=== PATIENT | female | born 1970 | race Caucasian/White ===

== ENCOUNTER → 2016-09-10 | Outpatient (CLI) | payer OTHER | LOC: BMCIMAGING 07:24 | DX: Z12.31 Encounter for screening mammogram for malignant neoplasm of breast (principal) | CPT/HCPCS: G0202 ==

== ENCOUNTER → 2016-09-17 | Outpatient (CLI) | payer OTHER | LOC: BMCIMAGING 10:46 | PROVIDERS: ATTEND Family Medicine | DX: D25.2 Subserosal leiomyoma of uterus (principal) ==

== ENCOUNTER → 2016-10-04 | Outpatient (CLI) | payer OTHER | LOC: BMCIMAGING 12:46 | DX: Z12.39 Encounter for other screening for malignant neoplasm of breast (principal); R92.2 Inconclusive mammogram | CPT/HCPCS: G0206 ==

== ENCOUNTER 2016-12-21 07:30 | Observation (INO) | payer OTHER ==
[~2016-12-21 07:30] MED LIST: KETOROLAC 30 MG/1 ML SDV IVP ONE; NS 1,000 ML IV ONE; SCOPOLAMINE HYDROBROMIDE 1.5 MG PATCH TD ONE
[2016-12-21] MEDS ORDERED: KETOROLAC 30 MG/1 ML SDV IVP ONE (07:32)
[2016-12-21] MEDS ORDERED: NS 1,000 ML IV ONE (07:32)
[2016-12-21] MEDS ORDERED: SCOPOLAMINE HYDROBROMIDE 1.5 MG PATCH TD ONE (07:32)
[2016-12-21] MEDS ORDERED: HEPARIN 10,000 UNIT/10 ML MDV ONE (07:37)
[2016-12-21] MEDS ORDERED: MIDAZOLAM 2 MG/2 ML VIAL ONE (08:36)
[2016-12-21] MEDS ORDERED: fentaNYL 100 MCG/2 ML INJ ONE (08:36)
[2016-12-21] MEDS ORDERED: ONDANSETRON 4 MG/2 ML VIAL ONE (08:36)
[2016-12-21] MEDS ORDERED: IOPAMIDOL (ISOVUE-300) 100 ML BTL ONE ×2 (10:04→10:08)
[2016-12-21] MEDS ORDERED: BUPIVACAINE 0.5% 30 ML SDV ONE (10:04)
[2016-12-21] MEDS ORDERED: HYDROmorphONE/DILAUDID 6 MG/30 ML PCA IV ONE (10:15)
[2016-12-21] MEDS ORDERED: NITROGLYCERIN/D5W 50 MG/250 ML BOTTLE IV ONE (10:19)
[2016-12-21] MEDS ORDERED: LACTULOSE 20 GM/30 ML UDCUP PO PRN (11:09)
[2016-12-21] MEDS ORDERED: POLYETHYLENE GLYCOL 3350 17 GM PKT PO PRN (11:09)
[2016-12-21] MEDS ORDERED: MAGNESIUM HYDROXIDE 30 ML UDCUP PO PRN (11:09)
[2016-12-21] MEDS ORDERED: BISACODYL 10 MG SUPP PR PRN (11:09)
[2016-12-21] MEDS ORDERED: ONDANSETRON 4 MG/2 ML VIAL IVP PRN (11:09)
[2016-12-21] MEDS ORDERED: NALOXONE HCL 0.4 MG/ML INJ IVP PRN (11:09)
[2016-12-21] MEDS ORDERED: HYDROmorphONE/DILAUDID 6 MG/30 ML PCA IV PRN (11:09)
--- NOTE | 2016-12-21 11:13 | POSTOPPROG ---
Post Op Note Date of Operation: 12/21/16 Surgeon: Emily Tubbs Anesthesia: IV Sedation Pre-op Diagnosis: uterine fibroids Post-op Diagnosis: same Indication: worsening symptoms Procedure: UFE Findings: no ovarian supply Inf/Abcess present in the surg proc area at time of surgery?: No Depth: Superfical (Skin SQ) EBL: Minimal Complications: None
[2016-12-21] MEDS ORDERED: NS 1,000 ML IV SCH (11:15)
[2016-12-21] MEDS: morphINE SR 15 MG TAB PO SCH ×2 (13:32→23:50)
[2016-12-21] MEDS: KETOROLAC 30 MG/1 ML SDV IVP SCH ×2 (15:37→21:41)
[2016-12-21] MEDS: oxyCODONE IR 5 MG TAB PO PRN (17:17)
[2016-12-21 21:07] VITALS: RESP 18
[2016-12-21] MEDS: SENNOSIDES/DOCUSATE SODIUM TAB PO SCH (21:40)
[2016-12-22] MEDS: KETOROLAC 30 MG/1 ML SDV IVP SCH (04:36)
[2016-12-22] MEDS: oxyCODONE IR 5 MG TAB PO PRN ×2 (04:43→14:01)
[2016-12-22] MEDS ORDERED: levOFLOXACIN 500 MG/DEXTROSE 100 ML IV ONE (07:00)
[2016-12-22] MEDS: morphINE SR 15 MG TAB PO SCH (09:35)
[2016-12-22] MEDS: SENNOSIDES/DOCUSATE SODIUM TAB PO SCH (09:36)
[2016-12-22] MEDS ORDERED: KETOROLAC 30 MG/1 ML SDV IVP ONE (09:45)
[2016-12-22 11:15] VITALS: BP 141/92; PULSE 69; TEMP 98.9; O2SAT 97
[2016-12-22] MEDS ORDERED: IBUPROFEN 600 MG TAB PO SCH (12:00)
--- NOTE | 2016-12-22 14:55 | SOAPPROG ---
[facility] Progress Note Assessment/Plan: Assessment: No evidence of complication after uterine fibroid embolization yesterday. Progressing well. Plan: Discharge today. F/U in [address] Tubbs. 12/22/16 14:49 Subjective: Feeling better. Crampy pelvic pain down to 3/10. Eating now, appetite better, no vomiting. Has been up to bathroom. Objective: Afebrile. Lungs clear. Heart RRR, no murmur. Abdomen: Bowel sounds present in all four quadrants. Abdomen soft, nontender, no masses. Right groin: no hematoma. Right pulses present: femoral, popliteal, dorsalis pedis. Vital Signs Temp Pulse Resp BP Pulse Ox 37.2 C 69 18 141/92 H 97 12/22/16 11:00 12/22/16 11:00 12/22/16 11:00 12/22/16 11:00 12/22/16 11:00 12/21/16 12/22/16 12/23/16 05:59 05:59 05:59 Intake Total 1700 Output Total 3350 700 Balance -1650 -700 - Pending Discharge Pending Discharge Within 24 Hours: Yes Pending Discharge Date: 12/22/16 Pending Discharge Time: 05:00 ICD10 Worksheet Patient Problems: Problems Problem Status Onset Uterine fibroid Acute
== END 2016-12-22 15:45 | disposition home or self-care (01) ==
LOC: FIMAGING 07:30 → F3E 11:09 → FOB 13:09
PROVIDERS: ADMIT Radiology Diagnostic Radiology; ATTEND Radiology Diagnostic Radiology
DX: D25.9 Leiomyoma of uterus, unspecified (principal)
CPT/HCPCS: 36247; 37243; 75736; 99152; C1769; C1894; G0378; C1760; J1170; J1644; J1885; J1956; J2250; J2405; J3010; Q9967

== ENCOUNTER → 2017-09-13 | Outpatient (CLI) | payer OTHER | LOC: BMCIMAGING 07:47 | PROVIDERS: ATTEND Family Medicine | DX: Z12.31 Encounter for screening mammogram for malignant neoplasm of breast (principal) ==

== ENCOUNTER → 2017-11-03 | Outpatient (CLI) | payer OTHER | LOC: BMCIMAGING 08:03 | PROVIDERS: ATTEND Physician Assistant | DX: R10.11 Right upper quadrant pain (principal); K76.0 Fatty (change of) liver, not elsewhere classified; R16.0 Hepatomegaly, not elsewhere classified ==

== ENCOUNTER → 2017-11-30 | Outpatient (CLI) | payer OTHER | LOC: FIMAGING 09:01 | PROVIDERS: ATTEND Physician Assistant | DX: R10.11 Right upper quadrant pain (principal) | CPT/HCPCS: A9537 ==

== ENCOUNTER → 2018-09-15 | Outpatient (CLI) | payer OTHER | LOC: BMCIMAGING 07:34 | PROVIDERS: ATTEND Family Medicine | DX: Z12.31 Encounter for screening mammogram for malignant neoplasm of breast (principal) ==

== ENCOUNTER → 2018-09-28 | Outpatient (CLI) | payer OTHER | LOC: BMCIMAGING 14:47 | PROVIDERS: ATTEND Family Medicine | DX: D25.0 Submucous leiomyoma of uterus (principal); D25.2 Subserosal leiomyoma of uterus; N83.201 Unspecified ovarian cyst, right side ==